=== PATIENT | female | born 1965 ===

== ENCOUNTER 2020-01-06 15:16 | Emergency (ER) | payer OTHER ==
[~2020-01-06] VITALS: Ht 157.5 cm; Wt 70.3 kg
[~2020-01-06 15:16] MED LIST: HYDROCHLOROTH12.5 MG; NEURONTIN300 MG; TRAMADOL HCL50 MG; ULTRAM ER300 MG
[2020-01-06] MEDS ORDERED: RELAFEN DS1000 MG (16:43)
[2020-01-06] MEDS ORDERED: CIPRO500 MG (16:43)
[2020-01-06] MEDS ORDERED: FLEXERIL (16:44)
[2020-01-06] MEDS ORDERED: URIN D.S. TABL1 EACH PO (22:25)
[2020-01-06] MEDS ORDERED: MACROBID 100 M100 MG PO (22:25)
[2020-01-06] MEDS ORDERED: INTESTINEX680 M1 PO (22:25)
[2020-01-06] MEDS ORDERED: METFORMIN HCL500 M2 PO (22:25)
== END 2020-01-06 22:42 | disposition home or self-care (01) ==
LOC: ER 15:16
DX: N39.0 Urinary tract infection, site not specified (principal)

== ENCOUNTER 2024-10-15 13:06 | Outpatient (CLI) | payer OTHER ==
[~2024-10-15 13:06] MED LIST changes: +CIPRO500 MG; +FLEXERIL; +INTESTINEX680 M1 PO; +MACROBID 100 M100 MG PO; +METFORMIN HCL500 M2 PO; +RELAFEN DS1000 MG; +URIN D.S. TABL1 EACH PO
== END 2024-10-15 13:15 | disposition home or self-care (01) ==
LOC: SONOGRAMA 13:06
DX: M25.561 Pain in right knee (principal)